=== PATIENT | female | born 1980 | race Caucasian/White ===

== ENCOUNTER 2018-11-11 14:53 | Emergency (ER) | payer OTHER ==
--- NOTE | 2018-11-11 15:29 | EDPHY ---
H & P Stated Complaint: Fell off bike; ?dislocated R shoulder Time Seen by Provider: 11/11/18 15:28 HPI/ROS: HPI: This is a 38-year-old female who presents with Chief Complaint: Fell off bike; ?dislocated R shoulder Location: Right shoulder Quality: Injury Duration: Prior to arrival Signs and Symptoms: No bleeding, no radiation, no numbness, no weakness, no tingling, no incontinence, + decreased range of motion, no swelling, + pain, no fever Timing: Acute Severity: 8 out of 10 Context: Patient is right-hand dominant, accidentally fell down while roller- skating and hit her anterior right shoulder. She reports that she felt immediate, constant, moderate, nonradiating pain. She instantly knew that she "dislocated it again." She notes decreased range of motion. Denies LOC/head injury/neck pain/dizziness/nausea/vomiting/amnesia. Modifying Factors: None Comment: ROS: A comprehensive 10 system review of systems is otherwise negative aside from elements mentioned in the history of present illness. MEDICAL/SURGICAL/SOCIAL HISTORY: Medical history: previous R shoulder dislocation, "leaky gut", Lyme disease, LMP 2-3 weeks ago. Surgical history: Denies Social history: Never smoked CONSTITUTIONAL: Polite and cooperative adult white female, awake and alert, no obvious distress HEENT: Atraumatic and normocephalic. NECK: supple, no midline tenderness, flexion 45 degrees, extension 45 degrees, right and left lateral flexion 45 degrees. No meningismus. Cardiovascular: Normal S1/S2, regular rate, regular rhythm, without murmur rub or gallop. PULMONARY/CHEST: Symmetrical and nontender. no crepitus. Clear to auscultation bilaterally. Good air movement. No accessory muscle usage. ABDOMEN: Soft, nondistended, nontender, no ecchymosis. PELVIC: no pain with rocking; bilateral hips flexion 125 degrees, extension 30 degrees, with no pain internal rotation and no pain external rotation. BACK: No midline tenderness, no paraspinous spasm, deep tendon reflexes 2/2, no pain with straight leg raise, No foot drop. Achilles reflexes are equal bilaterally. Able to walk on heels and toes without difficulty. EXTREMITIES: 2/2 pulses, strength 5/5, right SHOULDER: Arm held in abduction with shoulder lacking normal rounded contour. Difficulty touching ipsilateral arm to contralateral shoulder. DIP/PIP/MCP flexion/extension intact with good light touch sensation. no deformities, no clubbing, no cyanosis or edema. NEUROLOGICAL: no focal neuro deficits. GCS 15. Light touch sensation intact. SKIN: Warm and dry, no erythema. no rash. Good capillary refill. Source: Patient Exam Limitations: No limitations - Personal History LMP (Females 10-55): 22-28 Days Ago Current Tetanus Diphtheria and Acellular Pertussis (TDAP): Yes - Medical/Surgical History Other PMH: previous R shoulder dislocation. "leaky gut". Lymes disease - Social History Smoking Status: Never smoked Constitutional: Initial Vital Signs Temperature (C) 36.7 C 11/11/18 14:58 Heart Rate 73 11/11/18 14:58 Respiratory Rate 18 11/11/18 14:58 Blood Pressure 126/84 H 11/11/18 14:58 O2 Sat (%) 97 11/11/18 14:58 O2 Delivery Mode Room Air Allergies/Adverse Reactions: No Known Allergies Allergy (Unverified 11/11/18 15:02) Home Medications: Medication Instructions Recorded NK [No Known Home Meds] 11/11/18 Medical Decision Making - Diagnostics Imaging Results: Imaging Impressions Shoulder X-Ray 11/11/18 15:02 Impression: Anterior dislocation. 2. Right Shoulder, 2 views 15:54 History: Post reduction Findings: The humeral head is relocated in the glenoid. It is difficult to exclude a small Hill-Sachs deformity of uncertain chronicity. Impression: Successful reduction. Shoulder X-Ray 11/11/18 15:47 Impression: Anterior dislocation. 2. Right Shoulder, 2 views 15:54 History: Post reduction Findings: The humeral head is relocated in the glenoid. It is difficult to exclude a small Hill-Sachs deformity of uncertain chronicity. Impression: Successful reduction. Procedures: Procedure: Dislocation reduction. Intra-articular injection performed by myself using 6 cc of 1% lidocaine without epinephrine. The dislocation of the right shoulder was reduced using counter traction technique without complications. Post reduction the patient's neurovascular exam is normal. Post reduction x-ray demonstrates reduction of the joint to the anatomic position. The procedure was performed by myself and with Dr. Ragland. Procedure: Splint placement. A right sling was applied. After application of the splint I returned and re- examined the patient. The splint was adequately immobilizing the joint and distal to the splint the patient's circulation and sensation was intact. ED Course/Re-evaluation: Vital signs reviewed and stable upon arrival. Senior Medical Billing Specialist film show Los dislocation but no fracture Intra-articular injection performed and Dr. Ragland and myself reduced the shoulder using counter traction on 1 attempt No conscious sedation needed. Post reduction x-ray shows normal anatomic alignment. It is difficult to exclude a small Hill-Sachs deformity of uncertain chronicity. Placed in sling with orthopedic follow-up Patient politely declines pain medications. No signs of neurovascular compromise/tenting of skin/compartment syndrome/ extremities and joints examined above and below area of concern and are neurovascularly intact. This patient was seen under the supervision of my secondary supervising physician. I evaluated care for this patient with attending. Discussed this patient with Dr. Ragland who did see the patient. Differential Diagnosis: Shoulder injury differential diagnosis includes but is not limited to clavicle fracture, contusion, AC joint separation, rotator cuff injury, labral tear, humeral head fracture, sprain, scapula fracture. Departure - Departure Disposition: Home, Routine, Self-Care Clinical Impression: Dislocation of shoulder, right, closed Qualifiers: Encounter type: initial encounter Qualified Code(s): S43.004A - Unspecified dislocation of right shoulder joint, initial encounter Condition: Good Instructions: Shoulder Dislocation (ED), How to Use a Sling (ED) Additional Instructions: Wear the sling while out of bed until seen by Orthopedics. Take Tylenol 650 mg every 4 hours and/or Ibuprofen 600 mg every 8 hours with food as needed for pain. Apply ice for 30 minutes at a time; 2-3 times per day for the next 1-2 days. Follow up with Orthopedics in 5-7 days at which time they will evaluate and recommend with you if conservative management versus further imaging is indicated. Referrals: Matt Mora MD [Medical Doctor] - As per Instructions
[2018-11-11 16:31] VITALS: BP 120/74
== END 2018-11-11 16:31 | disposition home or self-care (01) ==
PROC: 0RSJXZZ Reposition Right Shoulder Joint, External Approach (ICD-10-PCS; principal; 2018-11-11)
DX: S43.004A Unspecified dislocation of right shoulder joint, initial encounter (principal); V00.121A Fall from non-in-line roller-skates, initial encounter; Y93.51 Activity, roller skating (inline) and skateboarding; Y92.9 Unspecified place or not applicable; Y99.8 Other external cause status